=== PATIENT | male | born 1965 | race African-American/Black ===

== ENCOUNTER 2016-11-03 12:49 | Emergency (ER) | payer OTHER ==
--- NOTE | ~2016-11-03 | CR58 ---
[facility] A Service of [facility] RADIOLOGY TEXT RESULTS PATIENT: KIKA GUO JR LOCATION: SED : 67 UNIT #: [id number] AGE: [address]: KISHORE MURCIA SEX: M ORDER DR: [id number] [place] [id number] E MR#: [id number] Acc #: [id number] NAME: KIKA GUO JR : 1965 SEX: M STUDY DATE/TIME: 11/03/2016 14:36 UNIT: SED ROOM: STUDY DESCRIPTION: CR Cervical Spine 2 or 3 Views Attending Physician: Ksihore Murcia Aprn Ordering Physician: Kishore Murcia Aprn Primary Care Physician: Jose Candelario M.D. MEDICAL IMAGING REPORT This report is preliminary unless electronic signature is present. EXAM Cervical spine series, 11/03/2016 1436 hours HISTORY 51-year-old who fell from a 4-foot ladder yesterday, complaining of neck pain, cough. COMPARISON Cervical spine CT 07/05/2014 FINDINGS AP, lateral and open-mouth views are performed. C1 through the top of T2 are visualized. There is no prevertebral soft tissue swelling. There is disc height loss and endplate spurring at C5-6 and C6-7. No fracture or malalignment. IMPRESSION Disc height loss and endplate spurring C5-6 and C6-7, similar to CT scan 07/05/2014. There is no fracture or subluxation. Dictated by... Maria Antonia Rivera M.D. THIS IS AN ELECTRONICALLY VERIFIED REPORT Maria Antonia Rivera M.D. at 11/04/2016 9:25 AM JASMINA/maya TD: 11/03/2016 23:20 JOB #: [id number] MEDICAL IMAGING REPORT [facility] A Service [facility] RADIOLOGY TEXT RESULTS PATIENT: KIKA GUO JR LOCATION: SED : 67 UNIT #: [id number] AGE: [address]: KISHORE MURCIA SEX: M ORDER DR: Page 1 of 1
--- NOTE | ~2016-11-03 | CR181 ---
[facility] A Service of [facility] & [facility] RADIOLOGY TEXT RESULTS PATIENT: KIKA GUO JR LOCATION: SED : 67 UNIT #: [id number] AGE: [address]: KISHORE MURCIA SEX: M ORDER DR: [id number] [place] [id number] E MR#: [id number] Acc #: [id number] NAME: KIKA GUO JR : 1965 SEX: M STUDY DATE/TIME: 11/03/2016 14:36 UNIT: SED ROOM: STUDY DESCRIPTION: CR Lumbar Spine 2 or 3 Views Attending Physician: Kishore Murcia Aprn Ordering Physician: Kishore Murcia Aprn Primary Care Physician: Jose Candelario M.D. MEDICAL IMAGING REPORT This report is preliminary unless electronic signature is present. EXAM Lumbar spine series, 11/03/2016 1436 hours HISTORY Patient fell from a 4-foot ladder yesterday, complaining of low back pain. COMPARISON MRI lumbar spine 05/08/2011 FINDINGS AP and lateral views of the lumbar spine and a cone lateral view of the lumbosacral junction were performed. There is disc height loss at T12-L1, unchanged. There is no fracture or subluxation. IMPRESSION Mild disc height loss T12-L1, similar to previous MRI. There is no fracture or subluxation. Dictated by... Maria Antonia Rivera M.D. THIS IS AN ELECTRONICALLY VERIFIED REPORT Maria Antonia Rivera M.D. at 11/04/2016 9:25 AM JASMINA/maya TD: 11/03/2016 23:19 JOB #: [id number] MEDICAL IMAGING REPORT Page 1 of 1
[~2016-11-03 12:49] MED LIST: ALBUTEROL17 GM INH; BACTRIM DS TABL1 TA1 PO; BACTRIM DS TABL1 TAB PO; BACTROBAN22 GM TP; BROMPHED DM PO; CLEOCIN PO; FLEXERIL10 M1 PO; FLEXERIL10 MG PO; FLONASE16 GM; KEFLEX PO; LEVAQUIN750 MG PO; LORTAB 5/500 TA1 TA1; LORTAB 7.5-5001 TAB PO; NAPROSYN500 MG PO; NAPROXEN PO; NO MEDICATIONS; NORFLEX100 M1 PO; OXYCODON HCL-1 UDTAB PO; PERCOCET 10/31 UDTA1 PO; PHENERGAN DM1 ML PO; PHENERGAN VC W120 M1 PO; PREDNISONE PO; PREDNISONE10 MG/DOSE PO; PREDNISONE5 M1 PO; PROMETHAZINE D118 ML PO; ROBITUSSIN AC PO; SOMA; TIZANIDINE HCL4 M1 PO; TOPAMAX PO; ULTRAM PO; VIBRAMYCIN100 M1 PO; VICODIN 5/1 TAB 5/50 PO; VICODIN 5/500 T1 TAB PO; VOLTAREN75 MG PO; ZITHROMAX PO; [UNRECOGNIZED DRUG - REMARK]
[2016-11-03] MEDS ORDERED: BP PILL (13:17)
[2016-11-03] MEDS ORDERED: MUSCLE RELAXER (13:17)
[2016-11-03] MEDS ORDERED: OXYCODONE (13:17)
== END 2016-11-03 15:52 | disposition home or self-care (01) ==
LOC: CED 12:49 → SED 12:49
DX: S39.92XA Unspecified injury of lower back, initial encounter (principal); Z88.0 Allergy status to penicillin; Y92.009 Unspecified place in unspecified non-institutional (private) residence as the place of occurrence of the external cause; Z88.8 Allergy status to other drugs, medicaments and biological substances; W11.XXXA Fall on and from ladder, initial encounter; Y93.39 Activity, other involving climbing, rappelling and jumping off; I10 Essential (primary) hypertension
CPT/HCPCS: 72040; 72100; 99283